=== PATIENT | female | born 1980 | race Caucasian/White ===

== ENCOUNTER → 2017-02-14 | Outpatient (CLI) | payer OTHER ==
--- NOTE | 2017-02-14 10:08 | Diagnostic Imaging Report ---
PROCEDURE: US abdomen complete. TECHNIQUE: Multiple real-time grayscale images were obtained over the abdomen in various projections. INDICATION: Dyspepsia. Epigastric pain. FINDINGS: The pancreas is largely obscured by bowel gas. The liver is hyperechoic and is mildly enlarged. No focal hepatic mass is seen. There is a contracted gallbladder seen with no stones. The wall is not significantly thickened. There is hypoechogenicity within the gallbladder which is probably related to sludge. Color Doppler demonstrates hepatopetal flow in the portal vein. The CBD is obscured. The spleen is 7.7 cm in length, normal. The abdominal aorta is mostly obscured with measurement at mid abdominal aorta at 1.4 cm, normal. The visualized portion of the IVC appears unremarkable. The right kidney is 11.5 and the left kidney is 11.9 cm in length. No hydronephrosis or focal lesion. No focal fluid collection or free fluid is seen in the abdomen. Sonographic Valencia's sign is reportedly negative. IMPRESSION: 1. Contracted gallbladder with suggestion of sludge. No stones or wall thickening. The patient has been n.p.o. and the contracted gallbladder in this setting is suggestive of biliary dyskinesia. 2. Mildly enlarged hyperechoic liver which could relate to fatty infiltration or hepatitis. Dictated by: Dictated on workstation # [id number]
== END ==
LOC: RAD 06:54
PROVIDERS: ATTEND Nurse Practitioner Family
DX: R10.13 Epigastric pain (principal)
CPT/HCPCS: 76700

== ENCOUNTER → 2017-03-01 | Outpatient (CLI) | payer OTHER ==
[~2017-03-01] MED LIST: CATHETER FLUSH 10 ML SYR IV PRN; PANT40TA2 PO; SUCR1TAB36 PO
--- NOTE | 2017-03-01 10:53 | Diagnostic Imaging Report ---
Indication: Right upper quadrant pain, abdominal bloating. Comparison: Ultrasound 02/14/2017. Technique: Scintigraphic images were obtained following the intravenous administration of 5.30 mCi of technetium 99m labeled Choletec. Ejection fraction was calculated following the administration of a fatty meal. Region of interest was drawn around the gallbladder and a time/activity curve was generated. Discussion: Hepatic uptake and excretion are normal. There is normal appearance of activity within the gallbladder at 15 minutes and within the small bowel at 10 minutes. No retention activity seen within the common duct. Following the administration of a fatty meal, the gallbladder ejection fraction was calculated at 82%, normal. Impression: 1. Normal HIDA scan. 2. Normal gallbladder ejection fraction. Dictated by: Dictated on workstation # [id number]
== END ==
LOC: CARD 07:15
PROVIDERS: ATTEND Surgery
DX: R14.0 Abdominal distension (gaseous) (principal); R10.11 Right upper quadrant pain
CPT/HCPCS: 78227

== ENCOUNTER → 2017-03-01 | Outpatient (CLI) | payer OTHER ==
[~2017-03-01] MED LIST changes: -CATHETER FLUSH 10 ML SYR IV PRN
== END ==
LOC: PREOP 05:51
PROVIDERS: ATTEND Surgery
DX: Z01.818 Encounter for other preprocedural examination (principal); K21.9 Gastro-esophageal reflux disease without esophagitis; R10.84 Generalized abdominal pain; R14.0 Abdominal distension (gaseous)

== ENCOUNTER 2017-03-05 09:29 | Day surgery (SDC) | payer OTHER ==
[~2017-03-05] VITALS: Ht 162.6 cm; Wt 93.9 kg
[2017-03-05] MEDS ORDERED: LACTATED RINGERS 1,000 ML IV ONE (09:37)
[2017-03-05] MEDS ORDERED: HURRICAINE EXT TUBE (BENZOCAINE) XX ONE (09:45)
[2017-03-05] MEDS ORDERED: LACTATED RINGERS 1,000 ML IV SCH (09:45)
[2017-03-05] MEDS ORDERED: HURRICAINE EXT TUBE (BENZOCAINE) ONE ×2 (09:53→11:08)
[2017-03-05] MEDS ORDERED: MIDAZOLAM 2 MG/2 ML (VERSED) VIAL ONE (10:24)
[2017-03-05] MEDS ORDERED: proPOfol 200 MG/20 ML (DIPRIVAN) VIAL IV ONE (10:24)
[2017-03-05] MEDS ORDERED: fentaNYL INJECTION 100 MCG/2 ML AMP ONE (10:25)
--- NOTE | 2017-03-05 10:43 | Progress Note-Pre Operative ---
Pre-Operative Progress Note H&P Reviewed The H&P was reviewed, patient examined and no changes noted. Date Seen by Provider: Mar 05, 2017 Time Seen by Provider: 10:43 Date H&P Reviewed: Mar 05, 2017 Time H&P Reviewed: 10:43 Pre-Operative Diagnosis: epigastric abdominal pain, reflux FREDRICK JOHNSON DO Mar 05, 2017 10:43
--- NOTE | 2017-03-05 11:16 | Progress Note-Post Operative ---
Post-Operative Progess Note Surgeon (s)/Bridge Ironworker Helper (s) Surgeon FREDRICK JOHNSON DO Bridge Ironworker Helper: na Pre-Operative Diagnosis epigastric abdominal pain, reflux Post-Operative Diagnosis gastritis, small hiatal hernia Procedure & Operative Findings Date of Procedure 03/05/17 Procedure Performed/Findings egd c biopsies Anesthesia Type per bottle capper Estimated Blood Loss Estimated blood loss (mL): none Specimens/Packing Specimens Removed antrum, ge junction FREDRICK JOHNSON DO Mar 05, 2017 11:16
[2017-03-05] MEDS ORDERED: SUCR1TAB36 PO (11:20)
[2017-03-05] MEDS ORDERED: PANT40TA2 PO (11:20)
--- NOTE | 2017-03-05 11:21 | Discharge Inst-Simple/Standard ---
Discharge Inst-Standard Discharge Medications New, Converted or Re-Newed RX: RX on Chart Patient Instructions/Follow Up Plan of Care/Instructions/FU: 3 weeks romel Activity as Tolerated: Yes Discharge Diet: Regular Diet FREDRICK JOHNSON DO Mar 05, 2017 11:21
[2017-03-05 11:35] VITALS: BP 128/65
[2017-03-05 12:05] VITALS: BP 132/77
[2017-03-05 12:30] VITALS: BP 132/77
--- NOTE | 2017-03-05 14:18 | OPERATIVE REPORT ---
DATE OF SERVICE: 03/05/2017 PREOPERATIVE DIAGNOSES: Epigastric abdominal pain and reflux. POSTOPERATIVE DIAGNOSIS: Gastritis, small hiatal hernia. PROCEDURE: EGD with biopsies. SURGEON: Fredrick Osborne DO ANESTHESIA: Per MOTOR VEHICLES SUPERVISOR. ESTIMATED BLOOD LOSS: None. COMPLICATIONS: None. INDICATIONS: The patient is a 36-year-old female who has epigastric abdominal pain. She tells that she had a gallbladder ultrasound demonstrating a contracted gallbladder with a suggestion of sludge, no stones or wall thickening, and mildly enlarged hyperechoic liver, which could relate to fatty infiltration or hepatitis. She had a HIDA scan performed for further evaluation, which was a normal HIDA scan with normal gallbladder ejection fraction of 82%. Further evaluation with EGD was recommended. She understands risks and benefits of procedure and wished to proceed with the procedure. Consent was signed and in the chart. PROCEDURE: The patient was taken to the endoscopy suite, placed in left lateral recumbent position. Timeout was performed. Scope was inserted into the mouth, down the esophagus, stomach and into the duodenum without difficulty. There were no polyps, masses or ulcerations within the duodenum. The scope was slowly retracted back into the stomach, where it was further insufflated noting significant erythematous changes within the antrum. Biopsies of the antrum were obtained. There were no polyps, masses or ulcerations noted. Scope was retroflexed noting a very small hiatal hernia. There was no other pathology noted. No polyps, masses or ulcerations. Scope was returned to its normal position, slowly withdrawn back into the distal esophagus, which had some slight erythematous changes. Biopsy at the GE junction was obtained. The scope was slowly retracted until completely removed, noting no other pathology. The patient tolerated procedure well without any complications. She was taken to recovery room in stable condition. RECOMMENDATIONS: The patient will be started on Protonix 40 mg twice a day for two weeks and then converted to 1 per day. She will also be started on Carafate 1 gram four times a day. The patient should avoid any nonsteroidal anti-inflammatory drugs or any other drugs that is irritating to the stomach. I have her follow up in the office at approximately three weeks to go over her pathology and see how her symptoms are doing at that time. Job ID: [id number] DocumentID: [id number] Dictated Date: 03/05/2017 11:25:52 Measurement Department Chief Clerk Date: 03/05/2017 12:33:15 Dictated By: FREDRICK OSBORNE DO
== END 2017-03-05 12:30 | disposition home or self-care (01) ==
LOC: ENDO 09:29
PROVIDERS: ATTEND Surgery
DX: K29.70 Gastritis, unspecified, without bleeding (principal); K21.9 Gastro-esophageal reflux disease without esophagitis; K44.9 Diaphragmatic hernia without obstruction or gangrene; I10 Essential (primary) hypertension; F17.210 Nicotine dependence, cigarettes, uncomplicated; E28.2 Polycystic ovarian syndrome; F41.9 Anxiety disorder, unspecified; E66.9 Obesity, unspecified; Z68.35 Body mass index [BMI] 35.0-35.9, adult; Z79.84 Long term (current) use of oral hypoglycemic drugs; Z79.899 Other long term (current) drug therapy
CPT/HCPCS: 84703